=== PATIENT | male | born 1980 | race Caucasian/White ===

== ENCOUNTER 2018-05-22 11:07 | Emergency (ER) | payer SELFPAY ==
--- NOTE | 2018-05-22 11:24 | EDPHY ---
H & P Stated Complaint: etoh intoxication Time Seen by Provider: 05/22/18 11:23 HPI/ROS: HPI: This is a 37-year-old male who presents with Chief Complaint: Alcohol intoxication, [facility] Location: Body Quality: Alcohol intoxication, [facility] Duration: Unknown Signs and Symptoms: No chest pain, no shortness of breath, no abdominal pain, no nausea, no vomiting, no hematemesis, no blood in stool, no suicidal ideation , no homicidal ideation Timing: Chronic Severity: Moderate Context: Patient presents with police on [facility]. He reports that he has a problem with alcohol and drinks daily. He cannot tell me how much he drank or how he ended up in the emergency room. 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 He denies any suicidal ideation, homicidal ideation, paranoid. No history of alcohol withdrawal seizures. Police noted some dried blood on his right external near. Patient does not remember falling and denies any facial pain, headache, loss of consciousness. Does not take any blood thinners. Patient does report that he has had a dried nose and recently purchased a humidifier for his home. Modifying Factors: None Comment: ROS: A comprehensive 10 system review of systems is otherwise negative aside from elements mentioned in the history of present illness. 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 Alcohol abuse. Never smoked. Family history noncontributory. CONSTITUTIONAL: Intoxicated, smells heavily of alcohol, polite and cooperative adult white male, awake and alert, no obvious distress HEENT: Atraumatic and normocephalic, PERRL, EOMI. Nares patent; no rhinorrhea; right near nasal mucosa so dryness with dried blood in the nares but no active bleeding; no nasal mucosal edema. Tympanic membranes clear. Oropharynx clear, no exudate and moist pink mucosa. Airway patent. No lymphadenopathy. No meningismus. Cardiovascular: Normal S1/S2, tachycardia, regular rhythm, without murmur rub or gallop. PULMONARY/CHEST: Symmetrical and nontender. Clear to auscultation bilaterally. Good air movement. No accessory muscle usage. ABDOMEN: Soft, nondistended, nontender, no rebound, no guarding, no peritoneal signs, no masses or organomegaly. No CVAT. EXTREMITIES: 2/2 pulses, strength 5/5, no deformities, no clubbing, no cyanosis or edema. NEUROLOGICAL: no focal neuro deficits. GCS 15. Slurred speech. SKIN: Warm and dry, no erythema. no rash. Good capillary refill. Source: Patient, Police, RN/MD Exam Limitations: Intoxication - Personal History Current Tetanus/Diphtheria Vaccine: Yes Current Tetanus Diphtheria and Acellular Pertussis (TDAP): Yes - Medical/Surgical History Hx Asthma: No Hx Chronic Respiratory Disease: No Hx Diabetes: No Hx Cardiac Disease: No Hx Renal Disease: No Hx Cirrhosis: No Hx Alcoholism: Yes Hx HIV/AIDS: No Hx Splenectomy or Spleen Trauma: No Other PMH: ETOH abuse - Social History Smoking Status: Never smoked Constitutional: Initial Vital Signs Temperature (C) 36.3 C 05/22/18 11:07 Heart Rate 108 H 05/22/18 11:07 Respiratory Rate 16 05/22/18 11:07 Blood Pressure 163/113 H 05/22/18 11:07 O2 Sat (%) 96 05/22/18 11:07 O2 Delivery Mode Room Air Allergies/Adverse Reactions: No Known Allergies Allergy (Unverified 05/22/18 11:13) Home Medications: Medication Instructions Recorded NK [No Known Home Meds] 05/22/18 Medical Decision Making ED Course/Re-evaluation: Vital signs reviewed and show mild tachycardia and elevated blood pressure. Agree with [facility]. Patient is currently calm and cooperative. Tetanus booster given. 1130: [id number] Alcohol intoxication without coma, delirium, delirium tremens, seizure activity Patient will be discharged to the [facility] once more sober and able to ambulate without assistance. After 4 hours in the ER, patient ambulating without any ataxia or need of assistance. Given Librium prepack This patient was seen under the supervision of my secondary supervising physician. I evaluated care for this patient with attending Differential Diagnosis: Altered mental status including but not limited to hypoglycemia, infectious process, electrolyte abnormality, head injury and intoxicants. - Data Points Medications Given: Discontinued Medications Chlordiazepoxide (Librium 25 Mg Prepack#6) 1 btl TAKEHOME EDNOW ONE Stop: 05/22/18 11:32 Last Admin: 05/22/18 11:41 Dose: 1 btl Diphtheria/Tetanus/Acell Pertussis (Boostrix) 0.5 ml IM .ONCE ONE Stop: 05/22/18 11:31 Last Admin: 05/22/18 11:42 Dose: 0.5 ml Departure - Departure Disposition: Home, Routine, Self-Care Clinical Impression: Alcoholic intoxication without complication Condition: Good Instructions: Chlordiazepoxide (By mouth), Abuse of Alcohol (ED) Additional Instructions: Please refrain from drinking alcohol excessively. You will be discharged to the [facility] for further detox and rehab. Referrals: [facility] [Outside] - As per Instructions
[2018-05-22] MEDS ORDERED: TDAP ADULT 0.5 ML INJ (BOOSTRIX) IM ONE (11:30)
[2018-05-22] MEDS ORDERED: CHLORDIAZEPOXIDE 25MG PREPK#6 BTL TAKEHOME ONE (11:31)
[2018-05-22 13:26] VITALS: BP 174/114
== END 2018-05-22 13:20 | disposition home or self-care (01) ==
LOC: EDUNIT#
DX: F10.920 Alcohol use, unspecified with intoxication, uncomplicated (principal)